=== PATIENT | male | born 2000 | race African-American/Black ===

== ENCOUNTER 2020-11-03 16:08 | Emergency (ER) | payer OTHER ==
[~2020-11-03] VITALS: Ht 167.6 cm; Wt 61.9 kg
[2020-11-03 16:13] VITALS: BP 140/68
[2020-11-03] MEDS ORDERED: ACETAMINOPHEN 500 MG TAB PO ONE (19:40)
--- NOTE | 2020-11-03 20:02 | REPVR ---
PROCEDURE INFORMATION: Exam: CT Head Without Contrast Exam date and time: 11/03/2020 6:53 PM Age: 20 years old Clinical indication: Injury or trauma; Fall; Blunt trauma (contusions or hematomas); Additional info: Head injury TECHNIQUE: Imaging protocol: Computed tomography of the head without contrast. Radiation optimization: All CT scans at this facility use at least one of these dose optimization techniques: automated exposure control; mA and/or kV adjustment per patient size (includes targeted exams where dose is matched to clinical indication); or iterative reconstruction. COMPARISON: No relevant prior studies available. FINDINGS: Brain: There is no evidence of infarct, barker-white matter differentiation is preserved. There is no hemorrhage or extra-axial collection. There is no mass. Cerebral ventricles: Lateral ventricles are slightly prominent for age Bones/joints: Unremarkable. No acute fracture. Paranasal sinuses: Visualized sinuses are unremarkable. No fluid levels. Mastoid air cells: Visualized mastoid air cells are well aerated. Soft tissues: Unremarkable. IMPRESSION: No intracranial injury or lesion Electronically signed by: Amanuel Beltrán On 11/03/2020 20:01:51 PM
--- NOTE | 2020-11-03 20:04 | REPVR ---
PROCEDURE INFORMATION: Exam: CT Maxillofacial Without Contrast Exam date and time: 11/03/2020 6:53 PM Age: 20 years old Clinical indication: Injury or trauma; Fall; Blunt trauma (contusions or hematomas); Nose; Additional info: Head injury TECHNIQUE: Imaging protocol: Computed tomography images of the face without contrast. Radiation optimization: All CT scans at this facility use at least one of these dose optimization techniques: automated exposure control; mA and/or kV adjustment per patient size (includes targeted exams where dose is matched to clinical indication); or iterative reconstruction. COMPARISON: No relevant prior studies available. FINDINGS: Orbital cavity: Orbits are normal. Globes are unremarkable. Bones/joints: There is no fracture of the nasal bones. There is no fracture the orbits or zygomatic arches. There is no fracture of the sinuses. There is no fracture of the maxilla. There is no fracture or dislocation of the mandible Paranasal sinuses: Normal. No air-fluid levels. Soft tissues: Unremarkable. IMPRESSION: No fracture of the facial bones Electronically signed by: Amanuel Beltrán On 11/03/2020 20:04:42 PM
== END 2020-11-03 21:06 | disposition home or self-care (01) ==
LOC: M ED 16:08
DX: S00.31XA Abrasion of nose, initial encounter (principal); S00.33XA Contusion of nose, initial encounter; R04.0 Epistaxis; X58.XXXA Exposure to other specified factors, initial encounter; Y92.89 Other specified places as the place of occurrence of the external cause; Y93.89 Activity, other specified; Y99.0 Civilian activity done for income or pay

== ENCOUNTER 2021-03-17 14:02 | Emergency (ER) | payer OTHER ==
[2021-03-17 14:04] VITALS: BP 110/61
== END 2021-03-17 14:22 | disposition left against medical advice (07) ==
LOC: M ED 14:02
DX: Z53.21 Procedure and treatment not carried out due to patient leaving prior to being seen by health care provider (principal)

== ENCOUNTER 2021-04-05 07:03 | Emergency (ER) | payer OTHER ==
[~2021-04-05] VITALS: Ht 167.6 cm; Wt 69.9 kg
--- OUTSIDE RECORDS SUMMARY | 2021-04-05 07:55 | CCD ---
Author Author [facility] Organization [facility] Address Unknown Phone Unavailable Care Team Providers Care Central Office Worker Name Role Phone NO, PCP Unavailable Unavailable BRIAN, Mendoza PEPE MD Unavailable Unavailable BRIAN, L MY MD Unavailable Unavailable BRIAN, L MY MD Unavailable Unavailable BRIAN, L MY MD Unavailable Unavailable BRIAN, L MY MD Unavailable Unavailable BRIAN, L MY MD Unavailable Unavailable BRIAN, L MY MD Unavailable Unavailable BRIAN, L MY MD Unavailable Unavailable BRIAN, L MY MD Unavailable Unavailable BRIAN, L MY MD Unavailable Unavailable BRIAN, L MY MD Unavailable Unavailable BRIAN, L MY MD Unavailable Unavailable BRIAN, L MY MD Unavailable Unavailable BRIAN, L MY MD Unavailable Unavailable BRIAN, L MY MD Unavailable Unavailable BRIAN, L MY MD Unavailable Unavailable BRIAN, L MY MD Unavailable Unavailable BRIAN, L MY MD Unavailable Unavailable BRIAN, L MY MD Unavailable Unavailable BRIAN, L MY MD Unavailable Unavailable Re-disclosure Warning The records that you are about to access may contain information from federally-assisted alcohol or drug abuse programs. If such information is present, then the following federally mandated warning applies: This information has been disclosed to you from records protected by federal confidentiality rules (42 CFR part 2). The federal rules prohibit you from making any further disclosure of this information unless further disclosure is expressly permitted by the written consent of the person to whom it pertains or as otherwise permitted by 42 CFR part 2. A general authorization for the release of medical or other information is NOT sufficient for this purpose. The Federal rules restrict any use of the information to criminally investigate or prosecute any alcohol or drug abuse patient.The records that you are about to access may contain highly sensitive health information, the redisclosure of which is protected by Article 27-F of the [facility] Public Health law. If you continue you may have access to information: Regarding HIV / AIDS; Provided by facilities licensed or operated by the [facility] Office of Mental Health; or Provided by the [facility] Office for People With Developmental Disabilities. If such information is present, then the following [facility] mandated warning applies: This information has been disclosed to you from confidential records which are protected by state law. State law prohibits you from making any further disclosure of this information without the specific written consent of the person to whom it pertains, or as otherwise permitted by law. Any unauthorized further disclosure in violation of state law may result in a fine or penitentiary sentence or both. A general authorization for the release of medical or other information is NOT sufficient authorization for further disc losure. Encounters Encounter Providers Location Date Indications Data Source(s ) Emergency Attender: MY TORRES MDConsultant: PCP NO 01/24/2021 11:48:00 AM EDT - 01/24/2021 02:25:00 PM [facility]. Medications No Information Insurance Providers Payer name Policy type / Coverage type Policy ID Covered alliance party ID Covered alliance party's relationship to delacruz Policy Delacruz Plan Information [facility] [employer] [id number] SP [id number] [facility] HUMANA - O/P [id number] 18 [id number] Problems, Conditions, and Diagnoses Code Display Name Description Problem Type Effective Dates Data Source(s) E860 Dehydration Dehydration Diagnosis 01/24/2021 11:48:00 AM EDT [facility] R197 Diarrhea, unspecified Diarrhea, unspecified Diagnosis 01/24/2021 11:48:00 AM EDT [facility] Surgeries/Procedures No Information Results ID Date Data Source [id number] 01/24/2021 11:48:00 AM EDT [facility] 1 OrderSheet [facility] Emergency Department [address] [place] [address] Phone #: ext- [phone] 01/24/2021 11:44 [facility]: [id number] Sex: M : 2000 Age: 20yWEIGHT:63.5 kg (S) HEIGHT:66 inches (S) BMI:22.6ALLERGIES: No Known Drug AllergyCHIEF COMPLAINT: vomiting, diarrheaDIAGNOSIS: Diarrhea, O/E - dehydratedLAB ORDERSOrder Description Priority Entered Acknowledged InitialedCMP STAT 12:45 01/24/2021 12:51 My Payne MD; [facility], [facility] [id number] w Diff STAT 12:45 01/24/2021 12:51 My Payne MD; [facility] [facility] [id number] Acid STAT 12:45 01/24/2021 12:51 My Payne MD; [facility] [facility] [id number] STAT 12:45 01/24/2021 12:51 My Payne MD; [facility] [facility] [id number] STAT 12:45 01/24/2021 12:51 My Payne MD; [facility] [id number], Stool STAT 12:45 01/24/2021 Cancelled: Unable to Collect 16:19 My Leon MD; Fercho HURTADODIAGNOSTIC STUDY ORDERSOrder Description Priority Entered Acknowledged InitialedMEDICATION/IV/DRIP/FLUID ORDERSOrder Description Priority Entered Acknowledged InitialedIV NS 1000 mL 12:45 01/24/2021 13:07 BenedictoBolus : Bolus 1000 My Torres MD; Kodi HURTADOmL (X1)Zofran IVP 4 mg 12:45 01/24/2021 13:08 My Garg MD; Kodi HURTADOIV NS 1000 mL 12:45 01/24/2021 Cancelled: Duplicate Order 16:20 KathyBolus : Bolus 1000 My Torres MD; Fercho HURTADOmL (X1) 2 OrderSheet [facility] Emergency Department [address] [place] [address] Phone #: ext- [phone] 01/24/2021 11:44 Patient: KATLYN MIRANDA Sex: M : 2000 Age: 20yGENERAL ORDERSOrder Description Priority Entered Acknowledged Initialed[Electronically signed by Kathy Brantley RN (:01/24/2021)][Electronically signed by My Torres MD (04:17 01/25/2021)][Electronically locked by Kathy Brantley RN (01/24/2021)] Name Value Range Interpretation Code Description Data Kati rce(s) Supporting Document(s) ID Date Data Source [id number] 01/24/2021 11:48:00 AM EDT [facility] 1 Medication Reconciliation Report [facility] Emergency Department [address] [place] [address] Phone #: ext- [phone] 01/24/2021 11:44 Patient: KATLYN MIRANDA Sex: M : 2000 Age: 20yWeight: 63.5 kgHeight/Length: 66 in.BMI: 22.6ALLERGIES: No Known Drug AllergyThe patient's Home Medications are listed below:NONE.The source(s) of the original Home Medication information:Not obtained.The following Medications were given to the patient in the Emergency Department:NS [IV] IV Fluids bolus 0, then 1000 mL/hr, administered: 13:07 01/24/2021Zofran [IVP] IVP 4 mg, administered: 13:01/24/2021The following Medications were prescribed to the patient:None. Name Value Range Interpretation Code Description Data Kati rce(s) Supporting Document(s) ID Date Data Source [id number] 01/24/2021 11:48:00 AM EDT [facility] 1 Medication Administration Record [facility] Emergency Department [address] [place] [address] Phone #: [phone]- [phone] 01/24/2021 11:44 Patient: KATLYN MIRANDA Sex: M : 2000 Age: 20yWeight: 63.5 kgHeight/Length: 66 inBMI: 22.6ALLERGIES: No Known Drug Allergy Date/Time Medication Administered Medication OrderedStart NS [IV] IV NS 1000 mL Bolus : Bolus [id number] 01/24/2021 Dose: IV Fluids mL (X1)Benedicto Mariee RN Rate: 1000 mL/hr over 1 hour(s)---- Dispensed: 1000 mL bagStop Site: #1 left AC14:11 1Dadam Brantley RNGiven ZOFRAN [IVP] (ONDANSETRON HCL) Zofran IVP 4 mg13:08 01/24/2021 Dose: 4 mg IVPPanneliese Mariee RN Site: #1 left AC Name Value Range Interpretation Code Description Data Kati rce(s) Supporting Document(s) ID Date Data Source [id number] 01/24/2021 11:48:00 AM EDT [facility] 1 General Instructions [facility] Emergency Department [address] [place] [address] Phone #: ext- [phone] 01/24/2021 11:44 Patient: KATLYN MIRANDA Sex: M : 2000 Age: 20yDiarrheaMild dehydrationINSTRUCTIONSDo not work until released.Drink plenty of fluids.(It is important to follow up with your primary care physician. return if worse or any new symptoms. It isideal to obtain a stool sample to determine if there is a treatable infectious cause to your diarrhea.).Warnings: Further evaluation is necessary.GENERAL WARNINGS: Return or contact your physician immediately if your condition worsens orchanges unexpectedly, if not improving as expected, or if other problems arise.Your Current Medications: .No home medication.Follow-up:Follow up with your doctor in two days even if well. Call for an appointment. Reason for referral: evaluation.Summary of care provided to patient via paper.Understanding of the discharge instructions verbalized by patient. ADDITIONAL INFORMATIONDiarrhea with Uncertain Cause (Adult) 2 General Instructions [facility] Emergency Department [address] [place] [address] Phone #: ext- [phone] 01/24/2021 11:44 Patient: KATLYN MIRANDA Sex: M : 2000 Age: 20yDiarrhea is when stools are loose and watery. This can be caused by: Viral infections Bacterial infections Food poisoning Parasites Irritable bowel syndrome (IBS) Inflammatory bowel diseases such as ulcerative colitis, Crohn's disease, and celiac disease Food intolerance, such as to lactose, the sugar found in milk and milk products Reaction to medicines like antibiotics, laxatives, cancer drugs, and antacidsAlong with diarrhea, you may also have: Abdominal pain and cramping Nausea and vomiting 3 General Instructions [facility] Emergency Department [address] [place] [address] Phone #: ext- [phone] 01/24/2021 11:44 Patient: KATLYN MIRANDA Sex: M : 2000 Age: 20y Loss of bowel control Fever and chills Bloody stoolsIn some cases, antibiotics may help to treat diarrhea. You may have a stool sample test. This is doneto see what is causing your diarrhea, and if antibiotics will help treat it. The results of a stool sampletest may take up to 2 days. The healthcare provider may not give you antibiotics until he or she hasthe stool test results.Diarrhea can cause dehydration. This is the loss of too much water and other fluids from the body.When this occurs, body fluid must be replaced. This can be done with oral rehydration solutions. Oralrehydration solutions are available at drugstores and grocery stores without a prescription. Sportsdrinks are not the best choice if you are very dehydrated. They have too much sugar and not enoughelectrolytes.Home careFollow all instructions given by your healthcare provider. Rest at home for the next 24 hours, or untilyou feel better. Avoid caffeine, tobacco, and alcohol. These can make diarrhea, cramping, and painworse.If taking medicines: Ephe-kcm-yrxljsb nausea and diarrhea medicines are generally OK unless you experience fever or blood stool. Check with your doctor first in those circumstances. You may use acetaminophen or NSAID medicines like ibuprofen or naproxen to reduce pain and fever. Don't use these if you have chronic liver or kidney disease, or ever had a stomach ulcer or gastrointestinal bleeding. Don't use NSAID medicines if you are already taking one for another condition (like arthritis) or are on daily aspirin therapy (such as for heart disease or after a stroke). Talk with your healthcare provider first. If antibiotics were prescribed, be sure you take them until they are finished. Don't stop taking them even when you feel better. Antibiotics must be taken as a full course.To prevent the spread of illness: Remember that washing with soap and water and using alcohol-based nuclear power reactor operator is the best way to prevent the spread of infection. Dry your hands with a single use towel (like a paper towel). Clean the toilet after each use. Wash your hands before eating. 4 General Instructions [facility] Emergency Department [address] [place] [address], [place] [address] Phone #: ext- [phone] 01/24/2021 11:44 Patient: KATLYN MIRANDA Sex: M : 2000 Age: 20y Wash your hands before and after preparing food. Keep in mind that people with diarrhea or vomiting should not prepare food for others. Wash your hands after using cutting boards, countertops, and knives that have been in contact with raw foods. Wash and then peel fruits and vegetables. Keep uncooked meats away from cooked and roayv-iq-bnv foods. Use a food thermometer when cooking. Cook poultry to at least 165F (74C). Cook ground meat (beef, veal, pork, huynh) to at least 160F (71C). Cook fresh beef, veal, huynh, and pork to at least 145F (63C). Don't eat raw or undercooked eggs (poached or dori side up), poultry, meat, or unpasteurized milk and juices.Food and drinksThe main goal while treating vomiting or diarrhea is to prevent dehydration. This is done by takingsmall amounts of liquids often. Keep in mind that liquids are more important than food right now. Drink only small amounts of liquids at a time. Don't force yourself to eat, especially if you are having cramping, vomiting, or diarrhea. Don't eat large amounts at a time, even if you are hungry. If you eat, avoid fatty, greasy, spicy, or fried foods. Don't eat dairy foods or drink milk if you have diarrhea. These can make diarrhea worse.During the first 24 hours you can try: Oral rehydration solutions. Sports drinks may be used if you are not too dehydrated and are otherwise he althy. Soft drinks without caffeine Mary Ann jono Water (plain or flavored) Decaf tea or coffee Clear broth, consomm, or bouillon Gelatin, popsicles, or frozen fruit juice bars 5 General Instructions [facility] Emergency Department [address] [place] [address] Phone #: ext- [phone] 01/24/2021 11:44 Patient: KATLYN MIRANDA Sex: M : 2000 Age: 20yThe second 24 hours, if you are feeling better, you can add: Hot cereal, plain toast, bread, rolls, or crackers Plain noodles, rice, mashed potatoes, chicken noodle soup, or rice soup Unsweetened canned fruit (no pineapple) BananasAs you recover: Limit fat intake to less than 15 grams per day. Don't eat margarine, butter, oils, mayonnaise, sauces, gravies, fried foods, peanut butter, meat, poultry, or fish. Limit fiber. Don't eat raw or cooked vegetables, fresh fruits except bananas, or bran cereals. Limit caffeine and chocolate. Limit dairy. Don't use spices or seasonings except salt. Go back to your normal diet over time, as you feel better and your symptoms imp rove. If the symptoms come back, go back to a simple diet or clear liquids.Follow-up careFollow up with your healthcare provider, or as advised. If a stool sample was taken or cultures weredone, call the healthcare provider for the results as instructed.Call [phone] if you have any of these symptoms: Trouble breathing Confusion Extreme drowsiness or trouble walking Loss of consciousness Rapid heart rate Chest pain Stiff neck 6 General Instructions [facility] Emergency Department [address] [place] [address] Phone #: [phone]- [phone] 01/24/2021 11:44 Patient: KATLYN MIRANDA Sex: M : 2000 Age: 20y SeizureWhen to seek medical adviceCall your healthcare provider right away if any of these occur: Abdominal pain that gets worse Constant lower right abdominal pain Continued vomiting and inability to keep liquids down Diarrhea more than 5 times a day Blood in vomit or stool Dark urine or no urine for 8 hours, dry mouth and tongue, tiredness, weakness, or dizziness Drowsiness New rash You don't get better in 2 to 3 days Fever of 100.4F (38C) or higher, or as directed by your healthcare provider [phone] [employer]. [address] [place] [address]. All rights reserved. This information is not intended as asubstitute for professional medical care. Always follow your healthcare professional's instructions.Dehydration (Adult)Dehydration occurs when your body loses too much fluid. This may be the result of prolongedvomiting or diarrhea, excessive sweating, or a high fever. It may also happen if you don't drinkenough fluid when you're sick or out in the heat. Misuse of diuretics (water pills) can also be a cause.Symptoms include thirst, decreased urine output, and darker colored urine. You may also feel dizzy,weak, fatigued, or very drowsy. The diet described below is usually enough to treat dehydration. In some cases, you may need medicine.Home care Drink at least 12, 8-ounce glasses of fluid every day to resolve the dehydration. Fluid may include water; orange juice; lemonade; apple, grape, or cranberry juice; clear fruit drinks; electrolyte replacement and sports drinks; and teas and coffee without caffeine. Don't drink alcohol. If you have been diagnosed with a kidney disease, ask your doctor how much and what types of fluids you should drink to prevent dehydration. If you have kidney disease, fluid can build up in the body. This can be dangerous to your health. 7 General Instructions [facility] Emergency Department [address] [place] [address] Phone #: ext- [phone] 01/24/2021 11:44 Patient: KATLYN MIRANDA [facility]#: [id number] Sex: M : 2000 Age: 20y If you have a fever, muscle aches, or a headache as a result of a cold or flu, you may take acetaminophen or ibuprofen, unless another medicine was prescribed. If you have chronic liver or kidney disease, or have ever had a stomach ulcer or gastrointestinal bleeding, talk with your healthcare provider before using these medicines. Don't take aspirin if you are younger than 18 and have a fever. In children with fever, aspirin raises the chance for severe liver injury and .Follow-up careFollow up with your healthcare provider, or as advised.When to seek medical adviceCall your healthcare provider right away if any of these occur: Continued vomiting Frequent diarrhea (more than 5 times a day); blood (red or black color) or mucus in diarrhea Swollen abdomen or increasing abdominal pain Reduced urine output or extreme thirst Fever of 100.4F (38C) or higherCall 911Call 911 or get medical care right away if you have any of the following: Weakness, dizziness, or fainting Unusual drowsiness or confusion Blood in vomit or stool [phone] [employer]. [address] [place] [address]. All rights reserved. This information is not intended as asubstitute for professional medical care. Always follow your healthcare professional's instructions. You have been given the following additional information: Diarrhea, Unknown Cause Dehydration (Adult) Do not work until released. 8 General Instructions [facility] Emergency Department [address] [place] [address] Phone #: ext- [phone] 01/24/2021 11:44 Patient: KATLYN MIRANDA Sex: M : 2000 Age: 20y(Electronically signed by My Torres MD 01/25/2021 04:17) Name Value Range Interpretation Code Description Data Kati rce(s) Supporting Document(s) ID Date Data Source [id number] 01/24/2021 11:48:00 AM EDT [facility] 1 Clinical Report - Nurses [facility] Emergency Department [address] [place] [address] Phone #: ext- [phone] 01/24/2021 11:44 Patient: KATLYN MIRANDA Sex: M : 2000 Age: 20yTRIAGEArrived by private vehicle. Historian: patient. Accompanied by friend.Acuity: LEVEL 3.Chief Complaint: DIARRHEA and (back pain).Onset. (1 weeks ago). 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 SEPSIS SCREEN NEGATIVE. No suspected or confirmedsigns of infection present.CARLOS COMA SCORE: 15- eyes open- spontaneous (4); best verbal response- oriented (5); bestmotor response- obeys commands (6). --12:19 01/24/21 Benedicto Mariee RN12:15 01/24/21. BP: 124/86. MAP: 98. HR: 60. RR: 16. O2 saturation: 100%. Temp: 96.8 F. Pain levelnow: 11/24. --12:19 01/24/21 Benedicto Mariee RN.Weight: 63.5 kg stated. Height/Length: 66 inches Per Patient. BMI: 22.6. --12:13 01/24/21 Benedicto Mariee RN.MedicationsNone. --12:17 01/24/21 Benedicto Mariee RN.AllergiesNo Known Drug Allergy. --12:01/24/21 Benedicto Mariee RN.PROBLEMS:no known problems.ADDITIONAL SURGERIES:no known surgeries.HistoryPAST MEDICAL HX: Immunizations: up-to-date.SOCIAL HX: Never smoker. Occasional alcohol use. No drug use. No recent travel. No knowncontact with a sick individual. He was offered HIV testing but declined and hepatitis C testing but declined. 2 Clinical Report - Nurses [facility] Emergency Department [address] [place] [address] Phone #: ext- [phone] 01/24/2021 11:44 Patient: KATLYN MIRANDA Sex: M : 2000 Age: 20y He has not traveled outside the [place] Infectious disease exposure: No infectious disease exposure. The patient was not exposed to Coronavirus. SELF HARM ASSESSMENT: Self harm assessment was performed. The patient answered "no" to the question(s) "Have you recently felt down, depressed, or hopeless?", "Do you have thoughts of harming or killing yourself?", "Do you have a plan for harming or killing yourself?", "Have you recently had thoughts about harming or killing others?", "Do you have any dangerous items in your possession?", "Have you noticed less interest or pleasure in doing things?", "Are you here because you tried to hurt yourself?" and "Have you ever tried to hurt yourself before today?". ABUSE ASSESSMENT: No report of abuse. NUTRITIONAL RISK ASSESSMENT: The nutritional risk assessment revealed no deficiencies. FUNCTIONAL ASSESSMENT: Functional assessment: no impairments noted. LEARNING NEEDS ASSESSMENT: The learning needs assessment revealed no barriers. FALL RISK ASSESSMENT: Fall risk assessment completed. No risk factors identified. SKIN INTEGRITY ASSESSMENT: Skin integrity risk assessment completed. No skin integrity risk identified. --12:19 01/24/21 Benedicto Mariee RN. Interventions Identification band on patient. To treatment room. --12:01/24/21 Benedicto Mariee RN.PHYSICAL [id number]:01/24/21. Ambulatory to room.GENERAL / NEURO / PSYCH: Alert. Oriented X 4. Appears in no acute distress.HEENT: Mucous membranes are pink.RESPIRATORY: Respirations not labored. Breath sounds within normal limits.CVS: Capillary refill less than 2 seconds.GI / : Abdomen soft. Abdominal tenderness in the lower abdomen. No tenderness in the epigastricarea. Bowel sounds within normal limits.SKIN: Skin is warm and dry.BACK: Vertebral point tenderness over the lumbar spine. --12:01/24/21 Kathy Brantley RN.NURSING PROGRESS NOTESPatient gowned. Head of bed elevated. Reassurance given. Call light placed in reach. Bed placed inlowest position. Brakes of bed on. Patient ready for evaluation- PA notified. --12:01/24/21 GENESIS Nguyen 12:56 01/24/2021 Site #1 started via IV in the left antecubital space with an 20g angiocath, with aseptic technique and good blood return; two attempts. Saline lock flushed with 10 mL saline. --12:56 01/24/21 3 Clinical Report - Nurses [facility] Emergency Department [address] [place] [address] Phone #: ext- [phone] 01/24/2021 11:44 Patient: KATLYN MIRANDA Sex: M : 2000 Age: 20y Benedicto Mariee RN 13:07 01/24/2021 Started bag #1 1000 mL IV Fluids NS; at 1000 mL/hr over 1 hour(s) via site #1 via IV pump. Allergies verified and confirmed 5 rights. IV patency established. IV site checked: no pain, redness, or swelling. IV flushed thoroughly pre- and post-medication administration. Information reviewed with patient including reason for taking this medication. Verbalizes understanding. --13:07 01/24/21 Benedicto Mariee RN 13:01/24/2021 Zofran (Ondansetron HCl) IVP 4 mg given over 2 minute(s) via site #1. Allergies verified and confirmed 5 rights. IV patency established. IV site checked: no pain, redness, or swelling. IV flushed thoroughly pre- and post-medication administration. IVP given by RN. Information reviewed with patient including reason for taking this medication. Verbalizes understanding. --13:08 01/24/21 Benedicto Mariee RN 14:11 01/24/2021 IV Fluids NS via IV site #1 Discontinued: bag #1 completed. Total amount infused: 1000 mL. IV patency established. IV site checked: no pain, redness, or swelling. IV flushed thoroughly. --14:11 01/24/21 Kathy Brantley RN.DISPOSITION / DISCHARGE 14:17 01/24/21. BP: 124/73. MAP: 90. HR: 70. RR: 16. O2 saturation: 100%. Temp: 98.6 F. Pain level now: 09/24. --14:18 01/24/21 Bill Roberts 14:22 01/24/2021 Site #1 removed upon discharge. Manual pressure and bandaid applied. --14:22 01/24/21 [facility] TechJonathon ER Tech1 Departure time: 14:25 01/24/2021. Condition at departure: stable. No learning barriers present. Discharge instructions provided and reviewed with the patient. Reviewed medication(s). Reviewed diet. Patient verbalized understanding. The patient was discharged by the physician. He was discharged home and unaccompanied at time of discharge. He left ambulatory and via private vehicle. Patient driving. Medication list reviewed and validated. --14:27 01/24/21 Xenia Paige R.N.Locked/Released at 01/24/2021 16:20 by Kathy Brantley RN Name Value Range Interpretation Code Description Data Kati rce(s) Supporting Document(s) ID Date Data Source [id number] 01/24/2021 11:48:00 AM EDT [facility] 1 Clinical Report - Physicians/Mid Levels [facility] Emergency Department [address] [place] [address] Phone #: ext- [phone] 01/24/2021 11:44 Patient: KATLYN MIRANDA Sex: M : 2000 Age: 20y Arrived- By private vehicle. Historian- patient. Disposition decision: 14:11 01/24/2021.HISTORY OF PRESENT ILLNESS Chief Complaint: VOMITING and DIARRHEA. This started 1 weeks and is still present. No recent travel. He has had nausea, vomiting, diarrhea and abdominal pain. No black stools, bloody stools, constipation, flank pain or history of possible bad food exposure. No known contact with a sick individual or change in routine. Has not recently been camping or on antibiotics. The illness is described as mild. (1 weeks ago). ( pt states he has had diarrhea for the past week and he feels that with all of the diarrhea that has caused his back muscle to become sore, denies any injury). Similar symptoms previously. None. Recent medical care: The patient was seen recently by a health care provider.REVIEW OF SYSTEMSNo fever, muscle aches, dif ficulty with urination or urination or dark urine. No headache, dizziness, sorethroat or throat or cough. No chest pain or pain, difficulty breathing or excessive urination. No skin rashor rash, jaundice or back pain or pain. No fainting episodes, blurred vision, chills, fever or double vision.No ear pain, epistaxis, runny nose, cough or urinary frequency. No hematuria, joint pain, neck pain,headache or seizure. No easy bruising or extremity swelling. The patient has had abdominal pain,diarrhea, nausea, vomiting and weakness.PAST HISTORYSee nurses notes. Problems: no known problems. Additional Surgeries: no known surgeries. Medications: None. Allergies: No Known Drug Allergy.SOCIAL HISTORY 2 Clinical Report - Physicians/Mid [facility] Emergency Department [address] [place] [address] Phone #: ext- [phone] 01/24/2021 11:44 Patient: KATLYN MIRANDA Sex: M : 2000 Age: 20y Occasional alcohol use. (last drink was 4 weeks ago). No drug use.ADDITIONAL NOTESThe nursing notes have been reviewed.PHYSICAL EXAMVital Signs: 01/24/2021 12:15 BP: 124/86. MAP: 98. HR: 60. RR: 16. O2 saturation: 100%. Temp: 96.8 F.Pain level now: 11/24. Have been reviewed and appear to be correct. Blood pressure normal. Meanarterial pressure- normal. Heart rate normal. Respiratory rate normal. Temperature normal. Oxygensaturation normal.Appearance: Alert. Oriented X3. No acute distress.Eyes: Pupils equal, round and reactive to light. Eyes normal inspection.ENT: Ears normal. Nose normal. Dry mucous membranes present.Neck: Normal inspection. Neck supple.CVS: Normal heart rate and rhythm. Heart sounds normal. Pulses normal.Respiratory: No respiratory distress. Painless inspiration. Breath sounds normal.Abdomen: Soft and nontender. Bowel sounds normal.Back: Normal inspection. No CVA tenderness.Skin: Skin warm and dry. Normal skin color. No rash. Normal skin turgor.Extremities: Extremities exhibit normal ROM. No lower extremity edema.Neuro: Oriented X 3. No motor deficit. No sensory deficit.LABS, X-RAYS, AND EKGLaboratory Tests: CMP: (TONIA: 01/24/2021 12:58) ( MsgRcvd 01/24/2021 13:50) Final results Test Result Flag Units (Reference) COMPREHENSIVE METABOLIC PANEL COMPREHENSIVE METABOLIC PANEL SODIUM 140 mEq/L (134 - 153) POTASSIUM 4.0 mEq/L (3.6 - 5.0) CHLORIDE 104 mEq/L (98 - 107) CO2 28 MEQ/L (22 - 30) GLUCOSE 97 MG/DL (70 - 99) BUN 7 MG/DL (7 - 21) CREATININE 0.8 MG/DL (0.7 - 1.5) BUN/CREAT 9 (8 - 27) TOTAL PROTEIN 6.7 G/DL (6.3 - 8.2) ALBUMIN 4.8 G/DL (3.9 - 5.0) GLOBULIN 1.9 L GM/DL (2.4 - 3.2) A/G RATIO 2.5 H (0.8 - 2.0) CALCIUM 9.5 MG/DL (8.4 - 10.2) TOTAL BILI 0.9 MG/DL (0.2 - 1.3) ALKALINE PHOS 56 U/L (38 - 126) SGOT/AST 22 U/L (5 - 40) SGPT/ALT 21 U/L (7 - 56) ANION GAP 8.0 mmol/L (8.0 - 16.0) AGE 20 yrs NON-AA GFR >60 mL/min AFR AMER GFR >60 mL/min Male GFR Interprentation 20-49 yrs >60 mL/min Normal 3 Clinical Report - Physicians/Mid Levels [facility] Emergency Department [address] [place] [address] Phone #: ext- [phone] 01/24/2021 11:44 Patient: KATLYN MIRANDA MRN: [id number] Sex: M : 2000 Age: 20y 50-59 yrs >56 mL/min Normal 60-69 yrs >49 mL/min Normal 70-79yrs >42 mL/min Normal 80 and above >35 mL/min Normal Female GFR Interpretation 20-39 yrs >60 mL/min Normal 40-49 yrs >58 mL/min Normal 50-59 yrs >51 mL/min Normal 60-69 yrs >45 mL/min Normal 70-79 yrs >39 mL/min Normal 80 and above >32 mL/min Normal CBC w Diff: (TONIA: 01/24/2021 12:58) ( MsgRcvd 01/24/2021 13:10) Final results Test Result Flag Units (Reference) CBC W/AUTOMATED DIFF COMPLETE BLOOD COUNT WBC 5.2 10/uL (4.2 - 11.0) RBC 4.39 L 10/uL (4.50 - 6.30) HEMOGLOBIN 14.2 g/dL (14.0 - 16.0) HEMATOCRIT 38.9 L % (41.0 - 51.0) MCV 88.6 fL (80.0 - 94.0) MCH 32.3 pg (27.0 - 34.0) MCHC 36.5 H g/dL (31.0 - 36.0) RDW 13.1 % (11.5 - 14.8) PLATELETS 175 10/uL (150 - 450) MPV 9.3 fL (7.4 - 10.4) NEUT 71.4 % (37.0 - 80.0) LYMPH 21.4 L % (25.0 - 40.0) MONO 5.4 % (3.0 - 8.0) EOS 0.6 % (0.0 - 7.0) BASO 0.6 % (0.0 - 2.0) %IG 0.6 H % (0.0 - 0.0) %NRBC 0.0 % (0.0 - 0.0) #NEUT 3.74 10/uL (2.00 - 6.90) #LYMPH 1.12 10/uL (0.60 - 3.40) #MONO 0.28 10/uL (0.00 - 0.90) #EOS 0.03 10/uL (0.00 - 0.70) #BASO 0.03 10/uL (0.00 - 0.20) #IG 0.03 10/uL (0.00 - 0.10) #NRBC 0.00 10/uL (0.00 - 0.00) MANUAL DIFF NOT INDICATED RBC MORPH NOT INDICATED Lactic Acid: (TONIA: 01/24/2021 12:58) ( MsgRcvd 01/24/2021 13:05) Final results Test Result Flag Units (Reference) LACTIC ACID 1.0 MMOL/L (0.2 - 2.2) Lipase: (TONIA: 01/24/2021 12:58) ( MsgRcvd 01/24/2021 13:42) Final results Test Result Flag Units (Reference) LIPASE 20 U/L (13 - 60) Magnesium: (TONIA: 01/24/2021 12:58) ( MsgRcvd 01/24/2021 13:43) Final results Test Result Flag Units (Reference) MAGNESIUM 1.9 MG/DL (1.7 - 2.2).PROGRESS AND PROCEDURESCourse of Care: pt with mild diarrhea. labs reviewed and grossly nl. pt given2 L of NS. he felt better. ptdischarged. 4 Clinical Report - Physicians/Mid Levels [facility] Emergency Department [address] [place] [address] Phone #: ext- [phone] 01/24/2021 11:44 Patient: KATLYN MIRANDA Sex: M : 2000 Age: 20y Patient/family counseled. Disposition: Discharged. Condition: good and stable.CLINICAL IMPRESSION Diarrhea Mild dehydrationINSTRUCTIONS Do not work until released. Drink plenty of fluids. (It is important to follow up with your primary care physician. return if worse or any new symptoms. It is ideal to obtain a stool sample to determine if there is a treatable infectious cause to your diarrhea.). Warnings: Further evaluation is necessary. GENERAL WARNINGS: Return or contact your physician immediately if your condition worsens or changes unexpectedly, if not improving as expected, or if other problems arise. Your Current Medications: . No home medication. Follow-up: Follow up with your doctor in two days even if well. Call for an appointment. Reason for referral: evaluation. Summary of care provided to patient via paper. Understanding of the discharge instructions verbalized by patient.(Electronically signed by My Torres MD 01/25/2021 04:17) Name Value Range Interpretation Code Description Data Kati rce(s) Supporting Document(s) ID Date Data Source [id number] 01/24/2021 01:49:00 PM EDT [facility] Name Value Range Interpretation Code Description Data Kati rce(s) Supporting Document(s) COMPREHENSIVE METABOLIC PANEL [facility] COMPREHENSIVE METABOLIC PANEL Sodium [Moles/volume] in Serum or Plasma 140 mEq/L 134 - 153 [facility] Potassium [Moles/volume] in Serum or Plasma 4.0 mEq/L 3.6 - 5.0 [facility] Chloride [Moles/volume] in Serum or Plasma 104 mEq/L 98 - 107 [facility] Carbon dioxide, total [Moles/volume] in Serum or Plasma 28 MEQ/L 22 - 30 [facility] Glucose [Mass/volume] in Serum or Plasma 97 MG/DL 70 - 99 [facility] BUN 7 MG/DL 7 - [facility] Creatinine [Mass/volume] in Serum or Plasma 0.8 MG/DL 0.7 - 1.5 [facility] BUN/CREAT 9 8 - 27 [facility] al Protein [Mass/volume] in Serum or Plasma 6.7 G/DL 6.3 - 8.2 [facility] Albumin [Mass/volume] in Serum or Plasma 4.8 G/DL 3.9 - 5.0 [facility] Globulin [Mass/volume] in Serum by calculation 1.9 GM/DL 2.4 - 3.2 L [facility] A/G RATIO 2.5 0.8 - 2.0 [facility] Calcium [Mass/volume] in Serum or Plasma 9.5 MG/DL 8.4 - 10.2 [facility] Bilirubin.total [Mass/volume] in Serum or Plasma 0.9 MG/DL 0.2 - 1.3 [facility] Alkaline phosphatase [Enzymatic activity/volume] in Serum or Plasma 56 U/L 38 - 126 [facility] Aspartate aminotransferase [Enzymatic activity/volume] in Serum or Plasma 22 U/L 5 - 40 [facility] Alanine aminotransferase [Enzymatic activity/volume] in Seru m or Plasma 21 U/L 7 - 56 [facility] Anion gap 3 in Serum or Plasma 8.0 mmol/L 8.0 - 16.0 [facility] AGE 20 yrs [facility] NON-AA GFR >60 mL/min [facility] AFR AMER GFR >60 mL/min [facility] Male GFR In terprentation 20-49 yrs >60 mL/min Normal 50-59 yrs >56 mL/min Normal 60-69 yrs >49 mL/min Normal 70-79yrs >42 mL/min Normal 80 and above >35 mL/min Normal Female GFR Interpretation 20-39 yrs >60 mL/min Normal 40-49 yrs >58 mL/min Normal 50-59 yrs >51 mL/min Normal 60-69 yrs >45 mL/min Normal 70-79 yrs >39 mL/min Normal 80 and above >32 mL/min Normal ID Date Data Source [id number] 01/24/2021 01:42:00 PM EDT [facility] Name Value Range Interpretation Code Description Data Kati rce(s) Supporting Document(s) Magnesium [Mass/volume] in Serum or Plasma 1.9 MG/DL 1.7 - 2.2 [facility] ID Date Data Source [id number] 01/24/2021 01:42:00 PM [facility] Name Value Range Interpretation Code Description Data Kati rce(s) Supporting Document(s) Lipase [Enzymatic activity/volume] in Serum or Plasma 20 U/L 13 - 60 [facility] ID Date Data Source [id number] 01/24/2021 01:10:00 PM [facility] Name Value Range Interpretation Code Description Data Kati rce(s) Supporting Document(s) CBC W/AUTOMATED DIFF [facility] COMPLETE BLOOD COUNT Leukocytes [#/volume] in Blood by Automated count 5.2 10^3/uL 4.2 - 1 1.0 [facility] Erythrocytes [#/volume] in Blood by Automated count 4.39 10^6/uL 4. 50 - 6.30 L [facility] Hemoglobin [Mass/volume] in Blood 14.2 g/dL 14.0 - 16.0 [facility] Hematocrit [Volume Fraction] of Blood by Automated count 38.9 % 4 1.0 - 51.0 L [facility] Erythrocyte mean corpuscular volume [Entitic volume] by Auto mated count 88.6 fL 80.0 - 94.0 [facility] Erythrocyte mean corpuscular hemoglobin [Entitic mass] by Automated count 32.3 pg 27.0 - 34.0 [facility] Erythrocyte mean corpuscular hemoglobin concentration [Mass/volume] by Automated count 36.5 g/dL 31.0 - 36.0 H [facility] Erythrocyte distribution width [Ratio] by Automated count 13.1 % 11.5 - 14.8 [facility] Platelets [#/volume] in Blood by Automated count 175 10^3/uL 150 - 45 0 [facility] Platelet mean volume [Entitic volume] in Blood by Automated count 9.3 fL 7.4 - 10.4 [facility] Neutrophils/100 leukocytes in Blood by Automated count 71.4 % 37. 0 - 80.0 [facility] Lymphocytes/100 leukocytes in Blood by Manual count 21.4 % 25.0 - 40.0 L [facility] Monocytes/100 leukocytes in Blood by Automated count 5.4 % 3.0 - 8.0 [facility] Eosinophils/100 leukocytes in Blood by Automated count 0.6 % 0.0 - 7.0 [facility] Basophils/100 leukocytes in Blood by Automated count 0.6 % 0.0 - 2.0 [facility] %IG 0.6 % 0.0 - 0.0 H [facility] al %NRBC 0.0 % 0.0 - 0.0 [facility] al Neutrophils [#/volume] in Blood by Automated count 3.74 10^3/uL 2.00 - 6.90 [facility] Lymphocytes [#/volume] in Blood by Automated count 1.12 10^3/uL 0.60 - 3.40 [facility] Monocytes [#/volume] in Blood by Automated count 0.28 10^3/uL 0.00 - 0.90 [facility] Eosinophils [#/volume] in Blood by Automated count 0.03 10^3/uL 0.00 - 0.70 [facility] Basophils [#/volume] in Blood by Automated count 0.03 10^3/uL 0.00 - 0.20 [facility] #IG 0.03 10^3/uL 0.00 - 0.10 [facility] #NRBC 0.00 10^3/uL 0.00 - 0.00 [facility] ospital MANUAL DIFF NOT INDICATED [facility] RBC MORPH NOT INDICATED [facility] ID Date Data Source [id number] 01/24/2021 01:05:00 PM EDT [facility] Name Value Range Interpretation Code Description Data Kati rce(s) Supporting Document(s) Lactate [Moles/volume] in Serum or Plasma 1.0 MMOL/L 0.2 - 2.2 [facility] Procedure Social History No Information
[2021-04-05] MEDS ORDERED: KETOROLAC 30 MG/ML 1ML VIAL IV ONE (09:35)
[2021-04-05] MEDS ORDERED: NS 1,000 ML IV ONE (09:35)
--- NOTE | 2021-04-05 09:51 | REP ---
INDICATION: CP COMPARISON: None. TECHNIQUE: PA and lateral. FINDINGS: The mediastinum and cardiac silhouette are normal. The lung mathews are clear and without acute consolidation, effusion, or pneumothorax. The skeletal structures are intact and normal. IMPRESSION: No acute cardiopulmonary process. <Electronically signed by Alexis Mitchell > 04/05/21 0928
[2021-04-05 10:12] LABS: BASO % 0.6 % (0.0-1.0); EOS # 0.1 10^3/uL (0.0-0.5); EOS % 1.3 % (0.0-3.0); HEMATOCRIT 41.6 % (42.0-52.0); HEMOGLOBIN 14.7 g/dl (13.5-17.5); LYMPH # 1.4 10^3/uL (1.5-5.0); LYMPH % 28.5 % (24.0-44.0); MEAN CORPUSCULAR HEMOGLOBIN 32.5 pg (27.0-33.0); MEAN CORPUSCULAR HGB CONC 35.3 g/dl (32.0-36.5); MEAN CORPUSCULAR VOLUME 91.8 fl (80.0-96.0); MONO # 0.3 10^3/uL (0.0-0.8); MONO % 6.7 % (2.0-8.0); NEUTROPHILS % 62.3 % (36.0-66.0); PLATELET COUNT, AUTOMATED 163 10^3/uL (150-450); RED BLOOD COUNT 4.53 10^6/uL (4.30-6.10); WHITE BLOOD COUNT 4.8 10^3/uL (4.0-10.0)
[2021-04-05 10:39] LABS: CK-MB VALUE MASS 1.6 NG/ML (<3.6); CPK CREATINE PHOSPHOKINASE 114 U/L (39-308); TROPONIN I < 0.02 NG/ML (< 0.10)
[2021-04-05] MEDS ORDERED: NAPR-837 PO (11:17)
[2021-04-05 11:26] VITALS: BP 114/67
--- NOTE | 2021-04-05 13:42 | ECGEPIP ---
[facility] - ED Test Date: 2021-04-05 Pat Name: KATLYN MIRANDA Department: Room: - Gender: Male Acls Specialist: ROEL : 2000 Requested By: BRYNN Garrett Order Number: [id number] Reading MD: Dana Estrada Measurements Intervals [place] Rate: 49 P: 21 [place]: 140 QRS: 57 QRSD: 92 T: 8 QT: 410 QTc: 370 Interpretive Statements Sinus bradycardia No prior Electronically Signed on 04-05-2021 13:41:54 EDT by Dana Estrada
== END 2021-04-05 11:58 | disposition home or self-care (01) ==
LOC: M ED 07:03
DX: R07.89 Other chest pain (principal); R00.1 Bradycardia, unspecified; F17.200 Nicotine dependence, unspecified, uncomplicated
CPT/HCPCS: 36415; 71046; 80047; 82550; 82553; 84484; 85025; 85379; 93005; 96361; 96374; 99284; J1885

== ENCOUNTER 2021-06-20 20:21 | Emergency (ER) | payer OTHER ==
[~2021-06-20] VITALS: Ht 162.6 cm; Wt 60.0 kg
[~2021-06-20 20:21] MED LIST: NAPR-837 PO
[2021-06-20 21:15] LABS: HEMATOCRIT 43.9 % (42.0-52.0); HEMOGLOBIN 15.7 g/dl (13.5-17.5); MEAN CORPUSCULAR HGB CONC 35.8 g/dl (32.0-36.5); MEAN CORPUSCULAR VOLUME 89.6 fl (80.0-96.0); PLATELET COUNT, AUTOMATED 206 10^3/uL (150-450); WHITE BLOOD COUNT 5.7 10^3/uL (4.0-10.0)
[2021-06-20 21:52] LABS: ACETAMINOPHEN LEVEL < 2.0 UG/ML (10.0-30.0); ALBUMIN 4.6 GM/DL (3.2-5.2); ALT/SGPT 24 U/L (12-78); BILIRUBIN,DIRECT 0.3 MG/DL (0.0-0.2); BILIRUBIN,TOTAL 0.8 MG/DL (0.2-1.0); BLOOD UREA NITROGEN 6 MG/DL (7-18); CALCIUM LEVEL 8.8 MG/DL (8.5-10.1); CARBON DIOXIDE LEVEL 27 MEQ/L (21-32); CHLORIDE LEVEL 109 MEQ/L (98-107); CREATININE FOR GFR 0.92 MG/DL (0.70-1.30); ETHYL ALCOHOL (ETHANOL) 0.159 % (0.000-0.010); GLOMERULAR FILTRATION RATE > 60.0 (>60); GLUCOSE, FASTING 104 MG/DL (70-100); POTASSIUM SERUM 4.1 MEQ/L (3.5-5.1); SALICYLATE LEVEL < 1.7 MG/DL (5.0-30.0); SODIUM LEVEL 143 MEQ/L (136-145); TOTAL PROTEIN 7.4 GM/DL (6.4-8.2)
[2021-06-20 21:54] LABS: RSV AMPLIFICATION NEGATIVE (NEGATIVE)
[2021-06-20 22:18] LABS: AMPHETAMINES LEVEL URINE NEGATIVE (NEGATIVE); BARBITURATES URINE NEGATIVE (NEGATIVE); BENZODIAZEPINES URINE NEGATIVE (NEGATIVE); CANNABINOIDS URINE NEGATIVE (NEGATIVE); COCAINE METABOLITE URINE NEGATIVE (NEGATIVE); METHADONE URINE NEGATIVE (NEGATIVE); OPIATES URINE NEGATIVE (NEGATIVE); PHENCYCLIDINE URINE NEGATIVE (NEGATIVE)
[2021-06-20 23:47] VITALS: BP 115/69
== END 2021-06-20 23:56 | disposition home or self-care (01) ==
LOC: M ED 20:21
DX: F10.129 Alcohol abuse with intoxication, unspecified (principal); F32.9 Major depressive disorder, single episode, unspecified; Z79.899 Other long term (current) drug therapy